=== PATIENT | male | born 1965 | race Caucasian/White ===

== ENCOUNTER → 2022-08-03 14:38 | Outpatient (BNVA) | payer BC, SELFPAY | PROVIDERS: Family Provider Family Medicine; Referring Provider Family Medicine; Visit Provider Specialist | DX: G89.29 Other chronic pain (principal); M25.562 Pain in left knee | CPT/HCPCS: 73560; 73565 ==

== ENCOUNTER 2022-09-30 13:31 | Outpatient (CLI) | payer BC, SELFPAY ==
--- NOTE | 2022-09-30 13:45 | MR_ITS ---
WS: [id number] MRI LEFT KNEE NONCONTRAST TECHNIQUE: Axial PD, coronal PD fat sat, coronal PD, sagittal PD, and sagittal PD fat-sat images obta ined. CLINICAL INFORMATION: left knee pain COMPARISON: None. 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 Distal quadriceps and patella tendons are intact. Small suprapatellar effusion. Fluid along the mid and distal ACL consistent with intrasubstance tear. Additional fluid along the proximal ACL extendin g to the proximal origin. Associated diffuse edema and fluid at the ACL origin along the intercondyla r lateral femoral condyle. Only a tiny sliver of residual tendon at the origin. Marked chronic thinning of the medial and lateral meniscus worse involving the medial meniscus. Chron ic appearing intrasubstance signal abnormality involving the posterior horn medial meniscus. Peripher al extrusion of the lateral meniscus. Diffuse edema and fluid along the undersurface of the lateral c ollateral ligament with thinning distally suspicious for LCL tear. Biceps femoris appears intact. Hig h-grade tear involving the popliteus with edema suspicious for posterolateral corner injury. Fibula h ead appears normal. Fluid and edema extending along the arcuate ligament laterally. Small amount of f luid and edema along the PFL. Medial collateral ligament is intact. Normal popliteal fossa. Minimal chondromalacia patella. No subc hondral edema. Normal medial and lateral patellar retinaculum. MR/MR knee LT wo con* [id number] IMPRESSION: 1. Thinning of the ACL with fluid and edema along the ligament extending from the origin to the insertion at the tibial spine. Diffuse edema at the ACL origi n along the femoral condyle with diffuse partial intrasubstance tear. Only tiny residual remnant at the insertion. 2. PCL appears normal. 3. Marked chronic appearing thinning of the medial and lateral meniscus worse involving the medial meniscus with blunting of the anterior and posterior horns . Chronic intrasubstance tear involving the posterior horn. 4. Moderate to advanced narrowing medial joint compartment with grade IV chond romalacia with subchondral edema along the tibial plateau. 5. Fluid along the undersurface of the lateral collateral ligament with diffus e thinning distally suspicious for prior tear. High-grade tear involving the po pliteus with diffuse edema suspicious for posterior lateral corner injury. 6. Chronic thinning of the lateral meniscus with peripheral extrusion. Suspect ed prior partial meniscectomy Outbridge grading: grade IV: full-thickness cartilage loss with underlying bone reactive changes
== END 2022-09-30 13:32 | disposition home or self-care (01) ==
PROVIDERS: PCP Family Medicine; Visit Provider Specialist
DX: M25.562 Pain in left knee (principal); R60.0 Localized edema
CPT/HCPCS: 73721

== ENCOUNTER → 2024-05-07 15:11 | Outpatient (BNVA) | payer BC, SELFPAY | PROVIDERS: PCP Family Medicine; Visit Provider Student in an Organized Health Care Education/Training Program | DX: M25.531 Pain in right wrist (principal); M19.131 Post-traumatic osteoarthritis, right wrist; M67.431 Ganglion, right wrist | CPT/HCPCS: 73110 ==

== ENCOUNTER 2025-01-07 07:22 | Day surgery (SDC) | payer OTHER, SELFPAY ==
[2025-01-07 07:40] VITALS: BP 111/84; PULSE 80; RESP 18; TEMP 36.1; O2SAT 96; BMI 22.8
[2025-01-07] MEDS: sodium chloride 0.9% 1,000 ML 30 ML IV (07:46)
--- NOTE | 2025-01-07 08:16 | P.ANESASSM_ITS ---
Pre-Anesthetic Assessment Height/Weight: Height 2.01 m Weight 92.079 kg Temp Pulse Resp BP Pulse Ox O2 Del Method 97.0 F L 80 18 111/84 96 Room Air 01/07/25 07:40 01/07/25 07:40 01/07/25 07:40 01/07/25 07:40 01/07/25 07:40 01/07/25 07:40 Preop Diagnosis: Screening Operation Date: 01/07/25 08:30 Proposed Procedures p Colonoscopy 27085 G0105 Z12.11(Not Applicable) - Lalit Christiansen MD Was Beta Guille taken within 24 hours: N/A Was Clonidine taken within 24 hours: N/A Last intake: Intake Last Liquid Date 01/06/25 Last Liquid Time 22:00 Last Solid Date 01/05/25 Last Solid Time 20:00 Social Tobacco and No alcohol Exam alert, oriented x 3, clear to auscultation bilaterally and regular rate & rhythm Airway Submandibular: within normal limits Cervical ROM: within normal limits Mallampati: Class II Dentition: false History/ROS No significant history except as noted and No significant complaints Pulmonary None reported CV/HEM None reported None reported Hepatic None reported GI None reported Metabolic None reported Musc/skel None reported Neuropsych None reported Anesthetic Plan ASA status: 2 Anesthesia: Anesthesia Evaluation and MAC Risk of > 500 ml blood loss (7ml/kg in children): No Medications/Allergies Home Medications ?Medication ?Instructions ?Recorded ?Confirmed ?Last Taken ?Type No Known Home Medications 05/07/2412/24 Unknown History Allergies Allergy/AdvReac Type Severity Reaction Status Date / Time No Known Allergies Allergy Verified 01/07/25 07:39 Current Medications Generic Name Dose Route Start Last Admin Trade Name Freq PRN Reason Stop Dose Admin Sodium Chloride 1,000 mls @ 30 mls/hr 01/07/25 06:45 01/07/25 07:46 Sodium Chloride 0.9% IV 01/08/25 06:44 30 mls/hr .Q24H COMFORT Administration PFSH Anesthesia Social History Smoking and tobacco/nicotine status: current every day tobacco/nicotine user Quit status (tobacco/nicotine): has tried quititng Second hand smoke exposure: Yes Alcohol intake: never Substance/Drug Use: never Adopted: No Caregiver/support person: Yes Lives independently: No Household members: spouse Housing: House Marital status: Number of children: 2 Number of grandchildren: 1 Highest education level completed: High School Graduate service: No Current occupational status: employed Current occupation: [employer] Current occupational exposures/hazards: No Pets and animals: No Sexually active: Yes Do you think of yourself as: Straight/Heterosexual Current gender identity: Male Special isabelle needs: No Agree to transfusion: Yes Data Anesthesia Cardiac Studies: No Data to Display
--- NOTE | 2025-01-07 08:22 | W.PM.OPSFHP ---
Same Day Surgery H&P Indication for Procedure/HPI DATE OF PROCEDURE: January 07, 2025 CHIEF COMPLAINT/INDICATIONFOR SURGICAL PROCEDURE: screening colonoscopy PREOP DIAGNOSIS: Screening colonoscopy PLANNED PROCEDURE: Operation Date: 01/07/25 08:30 Proposed Procedures p Colonoscopy 36202 G0105 Z12.11(Not Applicable) - Lalit Christiansen MD Medications/Allergies* Home Medications ?Medication ?Instructions ?Recorded ?Confirmed ?Type No Known Home Medications 05/07/24 01/07/25 History Allergies/Adverse Reactions Allergy/AdvReac Type Severity Reaction Status Date / Time No Known Allergies Allergy Verified 01/07/25 07:39 Current Medications: Generic Name Dose Route Start Last Admin Trade Name Freq PRN Reason Stop Dose Admin Sodium Chloride 1,000 mls @ 30 mls/hr 01/07/25 06:45 01/07/25 07:46 Sodium Chloride 0.9% IV 01/08/25 06:44 30 mls/hr .Q24H COMFORT Administration Pertinent History/Comorbid Conditions* Social History Smoking and tobacco/nicotine status: current every day tobacco/nicotine user Quit status (tobacco/nicotine): has tried quititng Second hand smoke exposure: Yes Alcohol intake: never Substance/Drug Use: never Adopted: No Caregiver/support person: Yes Lives independently: No Household members: spouse Housing: House Marital status: Number of children: 2 Number of grandchildren: 1 Highest education level completed: High School Graduate service: No Current occupational status: employed Current occupation: [employer] Current occupational exposures/hazards: No Pets and animals: No Sexually active: Yes Do you think of yourself as: Straight/Heterosexual Current gender identity: Male Special isabelle needs: No Agree to transfusion: Yes Pertinent Exam Findings alert, oriented x 3, clear to auscultation bilaterally, regular rate & rhythm and procedure specific exam findings abdomen soft, nt, nd Recommendations Risks and benefits of procedure reviewed Surgery/Procedure today Other Plans: Proceed with colonoscopy Coding Level of Care Code Acute Code for Chg Fwd
[2025-01-07 08:51] VITALS: BP 90/66; PULSE 74; RESP 18; TEMP 36.3; O2SAT 97
--- NOTE | 2025-01-07 12:33 | ANE.PACU2 ---
Inpatient post-anesthesia follow up: Vital signs: Temperature 97.3 F Pulse Rate 74 Respiratory Rate 18 Blood Pressure 90/66 Pulse Oximetry 97 Oxygen Delivery Me thod Room Air Oxygen Flow Rate Fraction of Inspir ed Oxygen Hydration adequate: Yes Nausea and vomiting: No Pain level: 1 Mental status: Baseline
== END 2025-01-07 09:25 | disposition home or self-care (01) ==
PROVIDERS: PCP Family Medicine; Visit Provider Student in an Organized Health Care Education/Training Program
PROC: 0DJD8ZZ Inspection of Lower Intestinal Tract, Via Natural or Artificial Opening Endoscopic (ICD-10-PCS; CPT 45378; principal; 2025-01-07 08:30)
DX: Z12.11 Encounter for screening for malignant neoplasm of colon (principal); K62.1 Rectal polyp; F17.200 Nicotine dependence, unspecified, uncomplicated; Z80.0 Family history of malignant neoplasm of digestive organs
CPT/HCPCS: 45380; 88305; J2704; J7030